=== PATIENT | female | born 1955 | race Caucasian/White ===

== ENCOUNTER 2018-06-18 08:22 | Outpatient (REF) | payer OTHER, SELFPAY ==
[2018-06-18 13:22] LABS: ALT 31 U/L (12-78); AST 24 U/L (15-37); Albumin 3.6 g/dL (3.4-5.0); Alkaline Phosphatase 65 U/L (46-116); Anion Gap 4.3 mmol/L (3-11); BUN 13 mg/dL (7-18); Bilirubin, Total 0.3 mg/dL (0.2-1.0); C-Reactive Protein 1.34 mg/dL (0.0-0.3); CO2 30.7 mmol/L (21.0-32.0); CREATININE 0.95 mg/dL (0.55-1.02); Calcium 8.9 mg/dL (8.5-10.1); Chloride 102 mmol/L (98-107); Glucose 98 mg/dL (70-100); Potassium 4.9 mmol/L (3.5-5.1); Sodium 137 mmol/L (136-145); Total Protein 6.8 g/dL (6.4-8.2)
[2018-06-18 13:31] LABS: Abs Immature Grans 0.02 k/cumm (0.0-0.09); Absolute Basophil Count 0.01 k/cumm (0.0-0.2); Absolute Eosinophil Count 0.07 k/cumm (0.0-0.7); Absolute Lymphocyte Count 1.59 k/cumm (1.2-3.4); Absolute Monocyte Count 0.54 k/cumm (0.11-0.7); Absolute Neutrophil Count 1.73 k/cumm (1.2-6.7); Basophils % 0.3; Eosinophils % 1.8; HCT 40.7 % (36.0-46.0); HGB 13.3 g/dL (12.0-15.5); Immature Grans % 0.5; Lymphocytes % 40.2; Mean Corp. HGB Concentration 32.7 g/dL (32.0-36.0); Mean Corpuscular Hemoglobin 30.9 pg (27.0-33.0); Mean Corpuscular Volume 94.7 fL (80-95); Mean Platelet Volume 10.1 fL (8.0-11.0); Monocytes % 13.6; Neutrophils % 43.6; Platelet Count 211 x1000/uL (130-400); RBC Distribution Width 12.2 % (11.7-14.6); White Blood Cell Count 3.96 k/cumm (4.4-10.8)
== END 2018-06-18 08:42 ==
LOC: LBN 08:22
PROVIDERS: Internal Medicine Rheumatology; PCP Internal Medicine; Visit Provider Internal Medicine
DX: Z79.899 Other long term (current) drug therapy (principal)
CPT/HCPCS: 80053; 85025; 86140

== ENCOUNTER 2018-09-20 00:38 | Outpatient (CLI) | payer OTHER, SELFPAY ==
--- NOTE | 2018-09-20 08:11 | DI.RAD_ITS ---
SYMPTOM/DIAGNOSIS: RHEUMATOID ARTHRITIS, M05.89, ASSESS FOR INTERVAL CHANGE RIGHT FOOT: Three views. Comparison is made with 09/14/16. The bones are normally mineralized. The metacarpal phalangeal joints are well maintained. There is mild periarticular spurring seen at the interphalangeal joint of the great toe and the DIP joint of the right third toe. The joint spaces are otherwise well maintained. There is a small spur at the plantar surface of the calcaneus which appears stable. No acute fracture, dislocation, lytic or sclerotic lesion is seen. The soft tissues are unremarkable. IMPRESSION: Findings most consistent with mild stable degenerative changes of the right foot. LEFT FOOT: Three views. Comparison is made with 09/14/16. There are again seen post surgical changes in the first metatarsal and ankylosis of the proximal interphalangeal joint of the second toe. The articular surfaces are well maintained, particularly the metatarsal phalangeal joints. The bones are normally mineralized. No acute fracture, dislocation, lytic or sclerotic lesion is seen. The soft tissues are unremarkable. IMPRESSION: No radiographic findings suggestive of rheumatoid arthritis. ARTHRITIC SERIES OF THE HANDS: Comparison is made with 09/14/16. In the left hand, the metacarpal phalangeal joints are all well maintained. Mild joint space narrowing and periarticular spurring is seen in the interphalangeal joints of the hand, particularly the DIP joints of the index, middle and little fingers. No periarticular osteopenia, lytic or sclerotic lesions or soft tissue calcifications are seen. IMPRESSION: Findings most suggestive of degenerative changes of the left hand. In the right hand, there is again seen narrowing of the second metacarpal phalangeal joint. The metacarpal phalangeal joints show no evidence of periarticular osteopenia. In the interphalangeal joints of the right hand, there is mild joint space narrowing and periarticular spurring most suggestive of degenerative disease. At the first carpal metacarpal joint, there is mild periarticular spurring and subchondral sclerosis also suggestive of degenerative changes. No soft tissue calcifications or osseous lytic or sclerotic lesions are seen. IMPRESSION: Findings most suggestive of degenerative disease of the right hand.
== END 2018-09-20 00:58 ==
PROVIDERS: PCP Internal Medicine; Visit Provider Internal Medicine Rheumatology
DX: M05.89 Other rheumatoid arthritis with rheumatoid factor of multiple sites (principal); M19.071 Primary osteoarthritis, right ankle and foot; M77.31 Calcaneal spur, right foot; M19.042 Primary osteoarthritis, left hand; Z98.890 Other specified postprocedural states
CPT/HCPCS: 73120; 73630

== ENCOUNTER 2018-10-08 08:33 | Outpatient (REF) | payer OTHER, SELFPAY ==
[2018-10-08 12:43] LABS: Abs Immature Grans 0.01 k/cumm (0.0-0.09); Absolute Basophil Count 0.01 k/cumm (0.0-0.2); Absolute Eosinophil Count 0.07 k/cumm (0.0-0.7); Absolute Lymphocyte Count 1.84 k/cumm (1.2-3.4); Absolute Monocyte Count 0.49 k/cumm (0.11-0.7); Absolute Neutrophil Count 2.37 k/cumm (1.2-6.7); Basophils % 0.2; Eosinophils % 1.5; HCT 40.4 % (36.0-46.0); Immature Grans % 0.2; Lymphocytes % 38.4; Mean Corp. HGB Concentration 32.2 g/dL (32.0-36.0); Mean Corpuscular Hemoglobin 30.5 pg (27.0-33.0); Mean Corpuscular Volume 94.8 fL (80-95); Monocytes % 10.2; Neutrophils % 49.5; Platelet Count 245 x1000/uL (130-400); RBC 4.26 m/cumm (4.00-5.20); RBC Distribution Width 12.5 % (11.7-14.6); White Blood Cell Count 4.79 k/cumm (4.4-10.8)
[2018-10-08 13:14] LABS: ALT 35 U/L (12-78); AST 21 U/L (15-37); Albumin 3.6 g/dL (3.4-5.0); Alkaline Phosphatase 69 U/L (46-116); Anion Gap 7.4 mmol/L (3-11); BUN 20 mg/dL (7-18); Bilirubin, Total 0.4 mg/dL (0.2-1.0); CO2 31.6 mmol/L (21.0-32.0); CREATININE 0.94 mg/dL (0.55-1.02); Chloride 103 mmol/L (98-107); Glucose 94 mg/dL (70-100); Potassium 4.4 mmol/L (3.5-5.1); Sodium 142 mmol/L (136-145); Total Protein 6.7 g/dL (6.4-8.2)
== END 2018-10-08 08:53 ==
LOC: LBN 08:33
PROVIDERS: Internal Medicine Rheumatology; PCP Internal Medicine; Visit Provider Internal Medicine
DX: Z79.899 Other long term (current) drug therapy (principal)
CPT/HCPCS: 80053; 85025; 86140

== ENCOUNTER 2019-02-12 09:11 | Outpatient (REF) | payer OTHER, SELFPAY ==
[2019-02-12 13:17] LABS: HCT 41.5 % (36.0-46.0); HGB 13.5 g/dL (12.0-15.5); Mean Corp. HGB Concentration 32.5 g/dL (32.0-36.0); Mean Corpuscular Hemoglobin 30.9 pg (27.0-33.0); Mean Platelet Volume 10.1 fL (8.0-11.0); Platelet Count 218 x1000/uL (130-400); RBC 4.37 m/cumm (4.00-5.20); RBC Distribution Width 12.6 % (11.7-14.6); White Blood Cell Count 4.43 k/cumm (4.4-10.8)
[2019-02-12 14:13] LABS: ALT 29 U/L (12-78); AST 23 U/L (15-37); Albumin 3.8 g/dL (3.4-5.0); Alkaline Phosphatase 65 U/L (46-116); BUN 19 mg/dL (7-18); Bilirubin, Total 0.2 mg/dL (0.2-1.0); C-Reactive Protein 0.16 mg/dL (0.0-0.3); CREATININE 0.84 mg/dL (0.55-1.02); Calcium 9.2 mg/dL (8.5-10.1); Chloride 105 mmol/L (98-107); Glucose 99 mg/dL (70-100); Potassium 4.7 mmol/L (3.5-5.1); Sodium 141 mmol/L (136-145); Total Protein 6.8 g/dL (6.4-8.2)
[2019-02-12 14:19] LABS: Calculated LDL 144 mg/dL; Cholesterol 223 mg/dL (50-200); HDL Cholesterol 63 mg/dL (40-60); Triglyceride 84 mg/dL (30-150)
== END 2019-02-12 09:31 ==
LOC: LBN 09:11
PROVIDERS: Internal Medicine Rheumatology; PCP Internal Medicine; Visit Provider Internal Medicine
DX: Z13.220 Encounter for screening for lipoid disorders (principal); M06.9 Rheumatoid arthritis, unspecified; Z79.899 Other long term (current) drug therapy
CPT/HCPCS: 80053; 80061; 83721; 85027; 86140

== ENCOUNTER 2019-05-27 19:02 | Outpatient (REF) | payer OTHER, SELFPAY ==
[2019-05-27 13:41] LABS: ALT 24 U/L (14-59); AST 20 U/L (15-37); Albumin 3.6 g/dL (3.4-5.0); Alkaline Phosphatase 68 U/L (46-116); Anion Gap 8.1 mmol/L (3-11); BUN 19 mg/dL (7-18); Bilirubin, Total 0.4 mg/dL (0.2-1.0); C-Reactive Protein 0.13 mg/dL (0.0-0.3); CO2 27.9 mmol/L (21.0-32.0); CREATININE 0.82 mg/dL (0.55-1.02); Calcium 8.9 mg/dL (8.5-10.1); Chloride 106 mmol/L (98-107); Glucose 98 mg/dL (70-100); Potassium 4.4 mmol/L (3.5-5.1); Sodium 142 mmol/L (136-145); Total Protein 6.5 g/dL (6.4-8.2)
[2019-05-27 13:51] LABS: Abs Immature Grans 0.01 k/cumm (0.0-0.09); Absolute Basophil Count 0.03 k/cumm (0.0-0.2); Absolute Eosinophil Count 0.11 k/cumm (0.0-0.7); Absolute Lymphocyte Count 1.48 k/cumm (1.2-3.4); Absolute Monocyte Count 0.49 k/cumm (0.11-0.7); Absolute Neutrophil Count 2.11 k/cumm (1.2-6.7); Basophils % 0.7; Eosinophils % 2.6; HCT 40.6 % (36.0-46.0); HGB 12.9 g/dL (12.0-15.5); Immature Grans % 0.2; Mean Corp. HGB Concentration 31.8 g/dL (32.0-36.0); Mean Corpuscular Hemoglobin 30.2 pg (27.0-33.0); Mean Corpuscular Volume 95.1 fL (80-95); Mean Platelet Volume 10.2 fL (8.0-11.0); Monocytes % 11.6; Neutrophils % 49.9; Platelet Count 239 x1000/uL (130-400); RBC 4.27 m/cumm (4.00-5.20); RBC Distribution Width 12.4 % (11.7-14.6); White Blood Cell Count 4.23 k/cumm (4.4-10.8)
== END 2019-05-27 19:22 ==
LOC: LBN 19:02
PROVIDERS: PCP Internal Medicine; Visit Provider Internal Medicine Rheumatology
DX: M06.9 Rheumatoid arthritis, unspecified (principal); Z79.899 Other long term (current) drug therapy
CPT/HCPCS: 80053; 85025; 86140

== ENCOUNTER 2019-08-18 18:33 | Outpatient (REF) | payer OTHER, SELFPAY ==
[2019-08-18 20:04] LABS: C-Reactive Protein 0.86 mg/dL (0.0-0.3)
[2019-08-18 20:18] LABS: Abs Immature Grans 0.01 k/cumm (0.0-0.09); Absolute Basophil Count 0.01 k/cumm (0.0-0.2); Absolute Eosinophil Count 0.12 k/cumm (0.0-0.7); Absolute Lymphocyte Count 1.93 k/cumm (1.2-3.4); Absolute Monocyte Count 0.69 k/cumm (0.11-0.7); Absolute Neutrophil Count 1.89 k/cumm (1.2-6.7); Basophils % 0.2; Eosinophils % 2.6; HCT 40.9 % (36.0-46.0); HGB 13.1 g/dL (12.0-15.5); Immature Grans % 0.2 %; Lymphocytes % 41.5; Mean Corpuscular Hemoglobin 30.6 pg (27.0-33.0); Mean Corpuscular Volume 95.6 fL (80-95); Mean Platelet Volume 9.9 fL (8.0-11.0); Monocytes % 14.8; Neutrophils % 40.7; Platelet Count 234 x1000/uL (130-400); RBC 4.28 m/cumm (4.00-5.20); RBC Distribution Width 13.3 % (11.7-14.6); White Blood Cell Count 4.65 k/cumm (4.4-10.8)
[2019-08-18 20:38] LABS: ALT 61 U/L (14-59); AST 26 U/L (15-37); Albumin 3.8 g/dL (3.4-5.0); Alkaline Phosphatase 83 U/L (46-116); Anion Gap 6.7 mmol/L (3-11); BUN 17 mg/dL (7-18); Bilirubin, Total 0.5 mg/dL (0.2-1.0); CO2 29.3 mmol/L (21.0-32.0); CREATININE 0.99 mg/dL (0.55-1.02); Chloride 101 mmol/L (98-107); Estimated GFR 57.02 (mL/min/1.73m2); Glucose 84 mg/dL (74-106); Potassium 4.5 mmol/L (3.5-5.1); Sodium 137 mmol/L (136-145)
== END 2019-08-18 18:53 ==
LOC: LBN 18:33
PROVIDERS: PCP Internal Medicine; Visit Provider Internal Medicine Rheumatology
DX: M06.9 Rheumatoid arthritis, unspecified (principal); Z79.899 Other long term (current) drug therapy
CPT/HCPCS: 80053; 85025; 86140

== ENCOUNTER 2019-12-26 07:19 | Outpatient (CLI) | payer OTHER, SELFPAY ==
--- NOTE | 2019-12-26 09:00 | DI.MAMMO_ITS ---
EXAM: MAMMO SCREENING CLINICAL HISTORY: screening TECHNIQUE: Mammograms were interpreted according to the usual protocol including computer analysis w [employer] CAD system, tomosynthesis and C-view imaging. COMPARISON: 2010 through 2014 FINDINGS: The breasts are composed of heterogeneously dense fibroglandular densities, Breast Density category C . No suspicious masses or suspicious microcalcifications are seen. No skin thickening or abnormal axillary lymph nodes are seen. There has been no significant change from prior exams. A biopsy marker clip is again noted in the upp er outer quadrant of the left breast. IMPRESSION: BI-RADS Category 1: Negative mammogram. Yearly screening mammography is recommended. Breast density category C, heterogeneously dense tissue which decreases the sensitivity of the mammog dhruv. The mammogram demonstrates the patient's breast tissue is dense. Dense breast tissue is very common a nd is not abnormal but dense breast tissue can make it harder to find cancer on a mammogram. Also, de nse breast tissue may increase breast cancer risk. This information about the result of the mammogram report was provided to the patient to raise their awareness. Use this report when you speak with the patient about their risks for breast cancer, which includes their family history. At that time, you may recommend additional screening tests (Ultrasound or MRI) as they might be useful based on their r isk. A negative radiographic report should not delay biopsy if a dominant or clinically suspicious mass is present. Up to ten percent of cancers are not identified on mammography. A negative report may reinforce clinical impression. Adenosis and dense breasts may obscure an underlying neoplasm. False positive reports average 6 to 10%.
== END 2019-12-26 07:39 ==
PROVIDERS: PCP Internal Medicine; Visit Provider Internal Medicine
CPT/HCPCS: 77063; 77067

== ENCOUNTER 2020-01-01 14:59 | Outpatient (REF) | payer OTHER, SELFPAY ==
[2020-01-01 18:32] LABS: Absolute Basophil Count 0.02 k/cumm (0.0-0.2); Absolute Eosinophil Count 0.11 k/cumm (0.0-0.7); Absolute Lymphocyte Count 1.99 k/cumm (1.2-3.4); Absolute Neutrophil Count 2.77 k/cumm (1.2-6.7); Basophils % 0.4; HCT 39.8 % (36.0-46.0); HGB 12.9 g/dL (12.0-15.5); Lymphocytes % 36.2; Mean Corp. HGB Concentration 32.4 g/dL (32.0-36.0); Mean Corpuscular Hemoglobin 31.1 pg (27.0-33.0); Mean Corpuscular Volume 95.9 fL (80-95); Monocytes % 10.9; Neutrophils % 50.5; Platelet Count 244 x1000/uL (130-400); RBC 4.15 m/cumm (4.00-5.20); RBC Distribution Width 12.3 % (11.7-14.6); White Blood Cell Count 5.49 k/cumm (4.4-10.8)
[2020-01-01 19:10] LABS: ALT 32 U/L (14-59); AST 25 U/L (15-37); Albumin 3.8 g/dL (3.4-5.0); Alkaline Phosphatase 77 U/L (46-116); Anion Gap 6.1 mmol/L (3-11); BUN 17 mg/dL (7-18); Bilirubin, Total 0.3 mg/dL (0.2-1.0); C-Reactive Protein 0.12 mg/dL (0.0-0.3); CO2 30.9 mmol/L (21.0-32.0); CREATININE 0.95 mg/dL (0.55-1.02); Calcium 9.3 mg/dL (8.5-10.1); Chloride 102 mmol/L (98-107); Estimated GFR 59.61 (mL/min/1.73m2); Glucose 101 mg/dL (74-106); Potassium 4.4 mmol/L (3.5-5.1); Sodium 139 mmol/L (136-145); Total Protein 6.9 g/dL (6.4-8.2)
== END 2020-01-01 15:19 ==
LOC: LBN 14:59
PROVIDERS: Internal Medicine Rheumatology; PCP Internal Medicine; Visit Provider Family Medicine
DX: M06.9 Rheumatoid arthritis, unspecified (principal); Z79.899 Other long term (current) drug therapy
CPT/HCPCS: 80053; 85025; 86140

== ENCOUNTER 2020-05-04 13:32 | Outpatient (REF) | payer OTHER, SELFPAY ==
[2020-05-04 18:35] LABS: Abs Immature Grans 0.01 10^3/uL (0.0-0.06); Absolute Basophil Count 0.04 10^3/uL (0.0-0.2); Absolute Eosinophil Count 0.11 10^3/uL (0.0-0.7); Absolute Lymphocyte Count 1.92 10^3/uL (1.2-3.4); Absolute Monocyte Count 0.52 10^3/uL (0.1-0.8); Absolute Neutrophil Count 3.04 10^3/uL (1.2-6.7); Basophils % 0.7; HCT 39.4 % (36.0-46.0); Immature Grans % 0.2; MCH 31.4 pg (27.0-33.0); MCV 95.2 fL (80-95); MPV 10.4 fL (8.0-11.0); Monocytes % 9.2; Neutrophils % 53.9; Nucleated RBC 0 %; Platelet Count 247 10^3/uL (130-400); RBC 4.14 10^6/uL (3.93-5.22); RDW 12.2 % (11.7-14.6); RDW-SD 42.6 fL; WBC 5.64 10^3/uL (4.4-10.8)
== END 2020-05-04 13:52 ==
LOC: LBN 13:32
PROVIDERS: PCP Internal Medicine; Visit Provider Internal Medicine
DX: M05.89 Other rheumatoid arthritis with rheumatoid factor of multiple sites (principal); Z79.899 Other long term (current) drug therapy
CPT/HCPCS: 85025; 86140

== ENCOUNTER 2020-05-07 04:28 | Outpatient (CLI) | payer OTHER, SELFPAY ==
[2020-05-09 10:09] LABS: Patient Race White; SARS-CoV-2 RNA Undetected (Undetected); SARS-CoV-2 Specimen Source Nasal
== END 2020-05-07 04:48 ==
PROVIDERS: PCP Internal Medicine; Visit Provider Nurse Practitioner Family
DX: Z11.59 Encounter for screening for other viral diseases (principal)
CPT/HCPCS: U0003

== ENCOUNTER 2020-08-13 09:06 | Outpatient (CLI) | payer OTHER, SELFPAY ==
--- NOTE | 2020-08-13 08:45 | DI.RAD_ITS ---
EXAM: XR FOOT RT COMPLETE CLINICAL HISTORY: sharmaine. TECHNIQUE: 2D digital imaging was performed. COMPARISON: CR XR foot RT complete from 09/20/2018 FINDINGS: BONES: No acute fracture is present. There is a cortical defect at the lateral aspect of the head of the right 5th metatarsal. This is associated with lucency in the head and overlying soft tissue swel ling. The joint space is well maintained. There is a small spur at the plantar surface of the calca neus JOINTS: No dislocation present. SOFT TISSUE: Normal. IMPRESSION: Interval development of a cortical break at the lateral aspect of the head of the right 5th metatarsa l with associated bony lucency and overlying soft tissue swelling. Osteomyelitis should be excluded in this patient. An MRI without and with contrast should be considered for further evaluation. DATA REPOSITORY: RADIATION DOSE DELIVERED:
== END 2020-08-13 09:26 ==
PROVIDERS: PCP Internal Medicine; Referring Provider Internal Medicine; Visit Provider Physician Assistant Surgical
DX: M06.871 Other specified rheumatoid arthritis, right ankle and foot (principal); M21.621 Bunionette of right foot; R93.7 Abnormal findings on diagnostic imaging of other parts of musculoskeletal system; M79.89 Other specified soft tissue disorders; S92.351A Displaced fracture of fifth metatarsal bone, right foot, initial encounter for closed fracture
CPT/HCPCS: 73630

== ENCOUNTER 2020-08-26 03:02 | Outpatient (CLI) | payer OTHER, SELFPAY ==
--- NOTE | 2020-08-26 06:45 | DI.MRI_ITS ---
EXAM: MR LOWER EXTREMITY RT WO CLINICAL HISTORY: 5TH MT BONE LESION,RHEUMATOID ARTHRITIS RT FOOT, M06.9. TECHNIQUE: Multiplanar multisequence MRI Examination was performed. COMPARISON: Comparison x-ray examination of the right foot from 08/13/2020. FINDINGS: There is loss of the cortex of the lateral and plantar surface of the head of the 5th metatarsal. Th ere is hyperintense signal seen in the distal half of the 5th metatarsal on the T2 weighted images an d corresponding hypointense signal on the T1 weighted images. There is fluid surrounding the head an d enlarging the MTP joint. It displaces the extensor and flexor tendons. There is there is mild hyp erintense signal seen in the proximal phalanx of the 5th toe. There is mild edema seen in the soft t issues around the 5th MTP joint. The surrounding musculature shows normal signal and size. There is nonspecific mild marrow edema seen in the proximal phalanx of the great toe with a small ryan nt effusion. No joint space narrowing identified. IMPRESSION: 1. Cortical disruption and marrow edema involving the 5th metatarsal. Please see the above discussio n for complete details. Diagnostic considerations include septic arthritis and osteomyelitis versus neoplasm. 2. Marrow edema and a joint effusion involving the interphalangeal joint of the great toe. An inflam matory/infectious process should be considered. DATA REPOSITORY:
== END 2020-08-26 03:22 ==
PROVIDERS: PCP Internal Medicine; Visit Provider Student in an Organized Health Care Education/Training Program
DX: M06.9 Rheumatoid arthritis, unspecified (principal); M89.8X8 Other specified disorders of bone, other site
CPT/HCPCS: 73718

== ENCOUNTER 2020-09-07 07:53 | Outpatient (REF) | payer OTHER, SELFPAY ==
[2020-09-07 13:47] LABS: Abs Immature Grans 0.01 10^3/uL (0.0-0.06); Absolute Basophil Count 0.04 10^3/uL (0.0-0.2); Absolute Eosinophil Count 0.13 10^3/uL (0.0-0.7); Absolute Lymphocyte Count 1.88 10^3/uL (1.2-3.4); Absolute Monocyte Count 0.46 10^3/uL (0.1-0.8); Absolute Neutrophil Count 2.53 10^3/uL (1.2-6.7); Basophils % 0.8; Eosinophils % 2.6; HCT 41.1 % (36.0-46.0); HGB 13.2 g/dL (11.2-15.7); Immature Grans % 0.2; Lymphocytes % 37.2; MCH 30.2 pg (27.0-33.0); MCHC 32.1 % (32.0-36.0); MCV 94.1 fL (80-95); Monocytes % 9.1; Neutrophils % 50.1; Nucleated RBC 0 %; Platelet Count 263 10^3/uL (130-400); RBC 4.37 10^6/uL (3.93-5.22); RDW 11.7 % (11.7-14.6); RDW-SD 40.7 fL; WBC 5.05 10^3/uL (4.4-10.8)
[2020-09-07 14:03] LABS: ALT 27 U/L (14-59); AST 19 U/L (15-37); Albumin 3.7 g/dL (3.4-5.0); Alkaline Phosphatase 73 U/L (46-116); Anion Gap 8.6 mmol/L (3-11); BUN 21 mg/dL (7-18); Bilirubin, Total 0.4 mg/dL (0.2-1.0); C-Reactive Protein 0.09 mg/dL (0.0-0.3); CO2 28.4 mmol/L (21.0-32.0); CREATININE 0.9 mg/dL (0.55-1.02); Calcium 9.5 mg/dL (8.5-10.1); Chloride 106 mmol/L (98-107); Glucose 92 mg/dL (74-106); Potassium 4.6 mmol/L (3.5-5.1); Sodium 143 mmol/L (136-145); Total Protein 6.9 g/dL (6.4-8.2)
== END 2020-09-07 07:54 | disposition home or self-care (01) ==
LOC: LBN 07:53
PROVIDERS: Internal Medicine Rheumatology; PCP Internal Medicine; Visit Provider Nurse Practitioner
DX: M05.89 Other rheumatoid arthritis with rheumatoid factor of multiple sites (principal); Z79.899 Other long term (current) drug therapy
CPT/HCPCS: 80053; 85025; 86140

== ENCOUNTER 2020-09-17 02:31 | Outpatient (CLI) | payer OTHER, SELFPAY ==
[2020-09-22 12:27] LABS: TB Interpretation Negative (Negative); TB1 Ag minus Nil 0.02 IU/ml; TB2 Ag minus Nil 0.01 IU/mL
== END 2020-09-17 02:32 | disposition home or self-care (01) ==
LOC: LBO 02:31
PROVIDERS: PCP Internal Medicine; Visit Provider Internal Medicine Rheumatology
DX: Z11.1 Encounter for screening for respiratory tuberculosis
CPT/HCPCS: 36415; 86480

== ENCOUNTER 2020-12-08 16:08 | Outpatient (REF) | payer OTHER, SELFPAY ==
[2020-12-08 19:10] LABS: Abs Immature Grans 0.01 10^3/uL (0.0-0.06); Absolute Basophil Count 0.04 10^3/uL (0.0-0.2); Absolute Eosinophil Count 0.22 10^3/uL (0.0-0.7); Absolute Monocyte Count 0.65 10^3/uL (0.1-0.8); Absolute Neutrophil Count 2.86 10^3/uL (1.2-6.7); Basophils % 0.6; Eosinophils % 3.2; HCT 41.9 % (36.0-46.0); HGB 13.7 g/dL (11.2-15.7); Immature Grans % 0.1; Lymphocytes % 45.1; MCH 30.7 pg (27.0-33.0); MCHC 32.7 % (32.0-36.0); MCV 93.9 fL (80-95); MPV 9.8 fL (8.0-11.0); Monocytes % 9.4; Neutrophils % 41.6; Nucleated RBC 0 %; Platelet Count 225 10^3/uL (130-400); RBC 4.46 10^6/uL (3.93-5.22); RDW 11.9 % (11.7-14.6); RDW-SD 41.9 fL; WBC 6.88 10^3/uL (4.4-10.8)
[2020-12-08 19:26] LABS: ALT 32 U/L (14-59); AST 22 U/L (15-37); Albumin 4.2 g/dL (3.4-5.0); Alkaline Phosphatase 63 U/L (46-116); Anion Gap 8.3 mmol/L (3-11); BUN 20 mg/dL (7-18); Bilirubin, Total 0.4 mg/dL (0.2-1.0); C-Reactive Protein 0.05 mg/dL (0.0-0.3); CO2 29.7 mmol/L (21.0-32.0); Calcium 9.5 mg/dL (8.5-10.1); Chloride 104 mmol/L (98-107); Glucose 90 mg/dL (74-106); Potassium 4.3 mmol/L (3.5-5.1); Sodium 142 mmol/L (136-145); Total Protein 7.2 g/dL (6.4-8.2)
== END 2020-12-08 16:09 | disposition home or self-care (01) ==
LOC: LBN 16:08
PROVIDERS: Internal Medicine Rheumatology; PCP Internal Medicine; Visit Provider Internal Medicine
DX: M05.89 Other rheumatoid arthritis with rheumatoid factor of multiple sites (principal); Z79.899 Other long term (current) drug therapy
CPT/HCPCS: 80053; 85025; 86140

== ENCOUNTER 2021-04-20 14:57 | Outpatient (REF) | payer OTHER, SELFPAY ==
[2021-04-20 16:38] LABS: Abs Immature Grans 0.01 10^3/uL (0.0-0.06); Absolute Basophil Count 0.04 10^3/uL (0.0-0.2); Absolute Eosinophil Count 0.12 10^3/uL (0.0-0.7); Absolute Lymphocyte Count 2.15 10^3/uL (1.2-3.4); Absolute Monocyte Count 0.99 10^3/uL (0.1-0.8); Absolute Neutrophil Count 4.97 10^3/uL (1.2-6.7); Basophils % 0.5; Eosinophils % 1.4; HCT 41.8 % (36.0-46.0); HGB 13.2 g/dL (11.2-15.7); Immature Grans % 0.1; MCH 30.7 pg (27.0-33.0); MCHC 31.6 % (32.0-36.0); MCV 97.2 fL (80-95); MPV 10.2 fL (8.0-11.0); Nucleated RBC 0 %; Platelet Count 250 10^3/uL (130-400); RDW 12.2 % (11.7-14.6); RDW-SD 43.8 fL; WBC 8.28 10^3/uL (4.4-10.8)
[2021-04-20 16:47] LABS: C-Reactive Protein 0.09 mg/dL (0.0-0.3)
== END 2021-04-20 14:58 | disposition home or self-care (01) ==
LOC: LBN 14:57
PROVIDERS: PCP Internal Medicine; Visit Provider Internal Medicine Rheumatology
DX: M05.89 Other rheumatoid arthritis with rheumatoid factor of multiple sites (principal); Z79.899 Other long term (current) drug therapy
CPT/HCPCS: 85025; 86140

== ENCOUNTER 2021-04-26 18:22 | Outpatient (REF) | payer OTHER, SELFPAY ==
[2021-04-26 17:32] LABS: ALT 27 U/L (14-59); AST 21 U/L (15-37); Albumin 3.5 g/dL (3.4-5.0); Alkaline Phosphatase 64 U/L (46-116); Anion Gap 8.4 mmol/L (3-11); BUN 20 mg/dL (7-18); Bilirubin, Total 0.3 mg/dL (0.2-1.0); CO2 28.6 mmol/L (21.0-32.0); CREATININE 0.8 mg/dL (0.55-1.02); Calcium 9.4 mg/dL (8.5-10.1); Chloride 106 mmol/L (98-107); Glucose 107 mg/dL (74-106); Potassium 4.6 mmol/L (3.5-5.1); Sodium 143 mmol/L (136-145); Total Protein 6.9 g/dL (6.4-8.2)
== END 2021-04-26 18:23 | disposition home or self-care (01) ==
LOC: LBN 18:22
PROVIDERS: PCP Internal Medicine; Visit Provider Internal Medicine Rheumatology
DX: M05.89 Other rheumatoid arthritis with rheumatoid factor of multiple sites (principal); Z79.899 Other long term (current) drug therapy
CPT/HCPCS: 80053

== ENCOUNTER 2021-05-16 15:45 | Emergency (ER) | payer OTHER, SELFPAY ==
[2021-05-16 15:51] VITALS: BP 162/70; PULSE 86; RESP 16; TEMP 36.6; O2SAT 99
--- NOTE | 2021-05-16 15:58 | ED.GENADUL_ITS ---
Discharge Plan Disposition Patient Disposition: HOME Condition: Good Discharge Details Clinical Impression: Laceration of lip, Contusion of lip Primary Care Provider: Rossana Phillips ED Provider: Ayde Bailey Home Meds and New Rx's Prescriptions: Continued albuterol sulfate [ProAir HFA] 90 mcg/actuation HFA aerosol inhaler 2 inh Inhalation Q4H PRN Qty: 36 RF: 2 triamcinolone acetonide 0.1 % cream 1 applic topical TID PRN (Reason: eczema) Qty: 80 RF: 2 meclizine 12.5 MG tablet 12.5 mg PO PRN RF: 0 calcium carbonate [Calcium 600] 600 MG tablet 1 tab PO BID RF: 0 ibuprofen 200 MG tablet 2 - 3 tab PO Q4H PRN RF: 0 cholecalciferol (vitamin D3) [Vitamin D3] 2,000 UNIT capsule 2,000 unit PO DAILY RF: 0 betamethasone, augmented 50 GM ointment 1 gm Topical PRN Qty: 45 RF: 3 leucovorin calcium 5 MG tablet 10 mg PO once a week RF: 0 Humira(CF) 40 mg/0.4 mL syringe kit 40 mg subcut Q2W RF: 0 hydroxychloroquine [Plaquenil] 200 mg tablet 200 mg PO DAILY RF: 0 Discharge Instructions Instructions: Laceration (ED) Additional Instructions: Your wound should heal well through secondary intention. Please complete warm salt water rinses after every meal and prior to bed. Please continue with ice to help with swelling. Elevating your head at night may help some with the swelling. Please continue with Tylenol and/or ibuprofen as needed for discomfort. Please try to stick with soft foods to allow this to heal as well as not put further pressure on your teeth. Monitor wound for signs infection including redness, warmth, drainage, increased pain, fever/chills. If you develop these or other new/worsening symptoms please seek care urgently once again. Please follow up with primary care in 1-2 weeks for reevaluaiton. Referrals: Rossana Phillips MD [Primary Care Provider] - Discharge Data Discharge Date/Time-TO BE ENTERED AT DEPARTURE: 05/16/21 16:15 Medical Decision Making Patient is a pleasant 65-year-old female presenting today with chief complaint of swollen upper lip and laceration on the internal aspect of the left upper lip. 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 States that she accidentally tripped over a cord in the room and fell forward hitting her face against a counter. States that overall she took the impact on her hands is able to brace herself. However, did strike her left and have some mouth trauma. Tetanus is up-to-date. States that she feels tight in her arms but is not having any pain in these areas. Does not feel that this needs to be evaluated further. She denies headache, loss of consciousness. She is concerned with the patient, she feels that her teeth are well aligned and they are not loose in any way. On exam, patient appears nontoxic. She does have notable swelling to the upper On the left aspect of her lip. She has a small subcentimeter linear laceration on the internal aspect of the upper lip. There is no through and through laceration. Appears to be through the outer most layer of the lip tissue. Ecchymosis is noted on the inner aspect of the lower lip. Maxillary stability testing is intact. No pain of the chin. No evidence to suggest fracture. Teeth are well aligned I do not appreciate any looseness. Tongue normal. No evidence of trauma elsewhere. Patient I discussed treatment options. Patient is immunocompromised that she has a history of RA and is on Humira. We discussed closure versus closure of the wound. Given the size, I feel that it would be safer to allow the heel naturally. This allows for her to be with a replacement therapy with salt water to remove any potential foreign body or debris that may become embedded in this area. Advised that she continue with ice. Tylenol and ibuprofen as needed for discomfort. We discussed foods that she should avoid, I did encourage her to soft foods as she did strike her teeth. Although I do not appreciate any significant damage or looseness at this time. She has plans to contact her dentist for further evaluation as her front teeth are crowns. We discussed signs symptoms of infection when to seek care for this. All the questions and concerns were addressed and she is in agreement with plan. HPI General Mode of arrival: ambulatory . Date/Time Provider Initiated Documentation: 05/16/21 15:58 . Limitations to Documentation: no limitations . Information obtained by: patient and RN notes reviewed . History of Present Illness 65 year old F presents to the emergency department with the chief complaint of lip swelling and laceration, described as moderate, with intensity rated at 5. Quality is described as aching, and is localized to the mouth. Patient reports no radiation. Patient started experiencing this minute(s) and it has been constant. other things that improve symptom(s), (ice) No exacerbating factors reported . Patient notes no other symptoms.. Patient did receive the following treatments prior to arrival, none Related Data Home Medications Medication Instructions Recorded Confirmed calcium carbonate [Calcium 600] 1 tab PO BID 11/15/12 05/16/21 cholecalciferol (vitamin D3) 2,000 unit PO DAILY 11/15/12 05/16/21 [Vitamin D3] ibuprofen 2 - 3 tab PO Q4H PRN tab-cap 11/15/12 05/16/21 meclizine 12.5 mg PO PRN tab 11/15/12 05/16/21 betamethasone, augmented 1 gm TOPICAL PRN #45 script 12/11/12 05/16/21 leucovorin calcium 10 mg PO once a week 03/13/17 05/16/21 albuterol sulfate 90 mcg/actuation 2 inh INHALATION Q4H PRN #36 gm 11/27/18 05/16/21 aerosol inhaler triamcinolone acetonide 0.1 % 1 applic TOPICAL TID PRN #80 g 06/22/20 05/16/21 topical cream adalimumab 40 mg/0.4 mL 40 mg SUBCUT Q2W 12/14/20 05/16/21 subcutaneous syringe kit hydroxychloroquine 200 mg tablet 200 mg PO DAILY 05/03/21 05/16/21 Previous Rx's Medication Instructions Recorded albuterol sulfate 90 mcg/actuation 2 inh INHALATION Q4H PRN #36 gm 11/27/18 aerosol inhaler triamcinolone acetonide 0.1 % 1 applic TOPICAL TID PRN #80 g 06/22/20 topical cream Allergies Allergy/AdvReac Type Severity Reaction Status Date / Time psyllium Allergy Severe wheezing, Verified 05/16/21 15:57 hives,itching,nausea/vomiting General Stated Complaint: Laceration [place]ENS: 4 Review of Systems Constitutional Constitutional: Reports as per HPI, Denies chills, Denies fever(s) and Denies headache(s) Eyes Eyes: Denies change in vision ENT Ears, Nose, Mouth, and Throat: Denies headache(s) and Denies neck pain Musculoskeletal Musculoskeletal: Reports as per HPI, Denies back pain and Denies neck pain Integumentary/Breasts Skin/Breast: Reports as per HPI Neurologic Neurologic: Reports as per HPI, Denies headache(s), Denies sensory deficit and Denies paresthesias [facility] Surgical History bunionectomy (~2009) [facility] Family History Mother Hypertensive disorder, systemic arterial Stroke Father Hearing loss Congestive heart failure Atrial fibrillation Asthma Sister Asthma Grandfather Diabetes paternal Grandfather Stroke Grandmother Congestive heart failure Grandmother Stroke Other Heart disease Social History (Updated 11/27/18 @ 14:30 by Edel Davalos RN) Smoking/Tobacco Use Status: Never Smoking risk assessment performed?: Yes Alcohol Intake: current Alcohol Intake frequency: holidays/special occasions only Alcohol type: wine Drug use: Never Substance use type: does not use Adopted: No Household members: spouse Housing: house Number of Children: 0 Communication Needs: Corrective Lenses Education Level: vocational current occupation: BOOKKEEPER What is your relationship status?: Panel score (0-1 are the most socially isolated patients): 1 What type of physical activity do you participate in: walking and regular exercise Duration: 15-30 minutes/day Frequency: 3-4 times per week Seatbelt use: always Drive intox or ride 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 Working smoke detector in home: Yes Fire extinguisher in home: Yes Carbon monox detector in home: Yes Do you feel safe at home: Yes Do you feel safe in your relationship?: Yes Victim of emotional abuse: No Victim of sexual abuse: No Exam Const General: cooperative, healthy appearing, comfortable, no acute distress and well developed Nutritional Appearance: average body habitus and well nourished Orientation: alert and awake [facility] Head: normal to inspection, normocephalic and atraumatic General nose exam: external nose normal and nares normal Face and sinus: normal facial exam, sinuses nontender, no maxillary instability, no sinus tenderness and no tenderness Mouth: oral mucosae normal, lip abnormal (swelling and ecchymosis to upper left side of lip), moist mucous membranes, no drooling, mouth trauma (<1cm linear laceration upper inner lip, no bleeding), no muffled voice, No restricted motion and other (ecchymosis inner lower lip) Teeth and gingiva: dentition normal Throat: posterior oropharynx normal, tonsils normal and uvula midline Eyes General: appearance normal, both eyes and all related structures Neck Neck: normal visual inspection and full ROM Resp Effort & Inspection: normal respiratory effort, able to speak in complete sentences and no respiratory distress Cardio Rate: regular rate Rhythm: regular rhythm Back/Spine/Pelvis Cervical Spine: normal cervical lordosis, cervical ROM normal, No cervical spinal tenderness and No step off deformity Neuro General: patient alert and patient awake Cognition: normal cognition Speech: speech normal Gait: normal gait Sensory Exam: no sensory deficits noted Psych Appearance: grossly normal and well kempt Mental Status: mental status grossly normal Speech and Movement: speech and movement normal Course Vital Signs Vital signs: Vital Signs Temperature 36.6 C 05/16/21 15:51 Pulse 86 05/16/21 15:51 Respiratory Rate 16 05/16/21 15:51 Blood Pressure 162/70 H 05/16/21 15:51 Pulse Oximetry 99 05/16/21 15:51 Temperature 36.6 C 05/16/21 15:51 Temperature Source Skin 05/16/21 15:51 Pulse 86 05/16/21 15:51 Respiratory Rate 16 05/16/21 15:51 Respiratory Effort Non-Labored 05/16/21 15:51 Blood Pressure 162/70 H 05/16/21 15:51 Pulse Oximetry 99 05/16/21 15:51 Oxygen Delivery Method Room Air 05/16/21 15:51 Oxygen Flow Rate 0 05/16/21 15:51 Pain Level 5 05/16/21 15:51 PAWSS Have you Been Recently Intoxicated or Drunk Within the Last 30 days?: No Have you Ever Experienced Previous Episodes of Alcohol Withdrawal?: No Have you ever Experienced Withdrawal Seizures?: No Have you ever Experienced Delirium Tremens(DT)s?: No Have you ever undergone Alcohol Rehabilitation Treatment (i.e, inpt ot outpatient treatment programs)?: No Have you ever Experienced Blackouts?: No Have you ever Combined Alcohol with other Downers within the last 90 days?: No Have you ever Combined Alcohol with any other Substance of Abuse during the last 90 days?: No Positive Blood Alcohol level on Presentation? [PCS.BAL]: No Evidence of Increased Autonomic Activity (i.e. HR>120, tremor, sweating, agitation, nausea)?: No Result: 0
== END 2021-05-16 16:15 | disposition home or self-care (01) ==
PROVIDERS: Emergency Provider Physician Assistant; PCP Internal Medicine
DX: S01.511A Laceration without foreign body of lip, initial encounter (principal); W01.198A Fall on same level from slipping, tripping and stumbling with subsequent striking against other object, initial encounter; Y99.0 Civilian activity done for income or pay
CPT/HCPCS: 99282; 99283

== ENCOUNTER 2021-07-19 07:51 | Outpatient (REF) | payer OTHER, SELFPAY ==
[2021-07-19 14:55] LABS: Abs Immature Grans 0.01 10^3/uL (0.0-0.06); Absolute Basophil Count 0.04 10^3/uL (0.0-0.2); Absolute Eosinophil Count 0.12 10^3/uL (0.0-0.7); Absolute Lymphocyte Count 2.58 10^3/uL (1.2-3.4); Absolute Neutrophil Count 2.07 10^3/uL (1.2-6.7); Basophils % 0.7; Eosinophils % 2.2; HCT 41.7 % (36.0-46.0); HGB 13.1 g/dL (11.2-15.7); Immature Grans % 0.2; Lymphocytes % 47.6; MCH 30.4 pg (27.0-33.0); MCHC 31.4 % (32.0-36.0); MCV 96.8 fL (80-95); MPV 9.9 fL (8.0-11.0); Monocytes % 11.1; Neutrophils % 38.2; Nucleated RBC 0 %; Platelet Count 249 10^3/uL (130-400); RBC 4.31 10^6/uL (3.93-5.22); RDW 11.9 % (11.7-14.6); RDW-SD 42.5 fL; WBC 5.42 10^3/uL (4.4-10.8)
[2021-07-19 16:40] LABS: ALT 40 U/L (14-59); AST 22 U/L (15-37); Albumin 3.8 g/dL (3.4-5.0); Alkaline Phosphatase 63 U/L (46-116); Anion Gap 5.4 mmol/L (3-11); BUN 25 mg/dL (7-18); Bilirubin, Total 0.3 mg/dL (0.2-1.0); C-Reactive Protein 0.05 mg/dL (0.0-0.3); CO2 30.6 mmol/L (21.0-32.0); CREATININE 0.9 mg/dL (0.55-1.02); Calcium 9.1 mg/dL (8.5-10.1); Chloride 107 mmol/L (98-107); Glucose 95 mg/dL (74-106); Sodium 143 mmol/L (136-145); Total Protein 6.8 g/dL (6.4-8.2)
== END 2021-07-19 07:52 | disposition home or self-care (01) ==
LOC: LBN 07:51
PROVIDERS: Internal Medicine Rheumatology; PCP Internal Medicine; Visit Provider Internal Medicine
DX: M05.89 Other rheumatoid arthritis with rheumatoid factor of multiple sites (principal); Z79.899 Other long term (current) drug therapy
CPT/HCPCS: 80053; 85025; 86140

== ENCOUNTER 2021-11-30 15:59 | Outpatient (REF) | payer OTHER, SELFPAY ==
[2021-11-30 16:51] LABS: Abs Immature Grans 0.01 10^3/uL (0.0-0.06); Absolute Basophil Count 0.05 10^3/uL (0.0-0.2); Absolute Eosinophil Count 0.07 10^3/uL (0.0-0.7); Absolute Lymphocyte Count 2.21 10^3/uL (1.2-3.4); Absolute Monocyte Count 0.48 10^3/uL (0.1-0.8); Absolute Neutrophil Count 2.13 10^3/uL (1.2-6.7); Eosinophils % 1.4; HCT 39.7 % (36.0-46.0); HGB 12.6 g/dL (11.2-15.7); Immature Grans % 0.2; Lymphocytes % 44.6; MCH 30.7 pg (27.0-33.0); MCHC 31.7 % (32.0-36.0); MCV 96.8 fL (80-95); Monocytes % 9.7; Neutrophils % 43.1; Platelet Count 226 10^3/uL (130-400); RDW 11.9 % (11.7-14.6); RDW-SD 42.7 fL; WBC 4.95 10^3/uL (4.4-10.8)
[2021-11-30 17:12] LABS: ALT 28 U/L (14-59); AST 19 U/L (15-37); Albumin 3.7 g/dL (3.4-5.0); Alkaline Phosphatase 63 U/L (46-116); Anion Gap 6.1 mmol/L (3-11); BUN 19 mg/dL (7-18); Bilirubin, Total 0.4 mg/dL (0.2-1.0); C-Reactive Protein 0.05 mg/dL (0.0-0.3); CO2 28.9 mmol/L (21.0-32.0); Calcium 8.7 mg/dL (8.5-10.1); Chloride 102 mmol/L (98-107); Estimated GFR 55.82 (mL/min/1.73m2); Glucose 88 mg/dL (74-106); Potassium 4.3 mmol/L (3.5-5.1); Sodium 137 mmol/L (136-145); Total Protein 6.8 g/dL (6.4-8.2)
== END 2021-11-30 16:00 | disposition home or self-care (01) ==
LOC: LBN 15:59
PROVIDERS: Internal Medicine Rheumatology; PCP Nurse Practitioner; Visit Provider Internal Medicine
DX: M05.89 Other rheumatoid arthritis with rheumatoid factor of multiple sites (principal); Z79.899 Other long term (current) drug therapy
CPT/HCPCS: 80053; 85025; 86140

== ENCOUNTER → 2021-12-28 03:39 | Outpatient (CLI) | payer OTHER, SELFPAY ==
--- NOTE | 2021-12-28 08:15 | DI.MAMMO_ITS ---
Exam(s) MAMMO SCREENING EXAM: MAMMO SCREENING CLINICAL HISTORY: screening, Z12.39 TECHNIQUE: Bilateral full field digital CC and MLO mammographic images were obtained with 3D tomosyn thesis and utilizing computer aided detection (CAD). COMPARISON: Available for comparison. FINDINGS: Masses/Architectural Distortion: None seen. Microcalcifications: No suspicious pleomorphic-type are seen. Skin Thickening/Nipple Retraction: None. A biopsy clip is again seen in the upper outer quadrant of t he left breast. IMPRESSION: 1. No significant interval change with no specific features of malignancy noted. 2. Unless there is more urgent need, screening mammography is recommended, as per [employer] guidelines. BI-RADS Category 1 - Negative Breast Density - Category C - Heterogeneously dense Breast density category C or D implies that the patient has dense breast tissue. Dense breast tissue is very common and is not abnormal but dense breast tissue can make it harder to find cancer on a ma mmogram. Also, dense breast tissue may increase their breast cancer risk. This information about the result of the mammogram report was provided to the patient to raise their awareness. Use this report when you speak with the patient about their risks for breast cancer, which includes their family hist ory. At that time, you may recommend for more screening tests (Ultrasound or MRI) as they might be us eful based on their risk. A negative radiographic report should not delay biopsy if a dominant or clinically suspicious mass is present. Up to ten percent of cancers are not identified on mammography. A negative report may reinforce clinical impression. Adenosis and dense breasts may obscure an underlying neoplasm. False positive reports average 6 to 10%. Patient will receive a letter notifying them of these results.
== END ==
PROVIDERS: PCP Nurse Practitioner; Visit Provider Nurse Practitioner
DX: Z12.31 Encounter for screening mammogram for malignant neoplasm of breast (principal)
CPT/HCPCS: 77063; 77067

== ENCOUNTER 2022-01-30 11:40 | Outpatient (CLI) | payer OTHER, SELFPAY ==
--- NOTE | 2022-01-30 08:15 | DI.RAD_ITS ---
Exam(s) XR KNEE RT 3V AP,LAT,JOSE EXAM: XR KNEE RT 3V AP,LAT,JOSE CLINICAL HISTORY: RIGHT KNEE PAIN. TECHNIQUE: 2D digital imaging was performed. COMPARISON: No exams were available for comparison FINDINGS: 3 views No evidence of fracture. There appears to be a small joint effusion. Addition, there are moderate degenerative changes in the medial compartment. There is also an osteoc hondral defect at the articular surface of the medial femoral condyle, measuring approximately 11 mil limeters wide. There are marginal osteophytes off the medial compartment. Lateral compartment appea rs unremarkable. Mild degenerative changes in the patellofemoral compartment. IMPRESSION: Degenerative changes, most evident in the medial compartment and there also appears to be an 11 jeovanny meter wide osteochondral defect in the medial compartment at the level of the condylar articular surf zack. There does not appear to be an obvious loose intra-articular body. There is a calcific density seen on the lateral view projected posteriorly but this may represent a fabella (as opposed to a loo se fragment from the OCD in the medial femoral condyle.) DATA REPOSITORY: RADIATION DOSE DELIVERED:
--- NOTE | 2022-01-30 08:15 | DI.RAD_ITS ---
Exam(s) XR KNEE LT 3V AP,LAT,JOSE EXAM: XR KNEE LT 3V AP,LAT,JOSE CLINICAL HISTORY: LEFT KNEE PAIN. TECHNIQUE: 2D digital imaging was performed. COMPARISON: CR XR KNEE RT 3V AP,LAT,JOSE from 01/30/2022 FINDINGS: 3 views No evidence of fracture nor obvious joint effusion. The main finding here is moderate narrowing of t he medial compartment as well as marginal osteophytes off the medial compartment. Lateral compartmen t appears unremarkable. Patellofemoral compartment exhibits moderate degenerative change. Bone dens ity normal. No osseous lesions evident. IMPRESSION: Moderate degenerative changes in the medial and patellofemoral compartments. DATA REPOSITORY: RADIATION DOSE DELIVERED:
== END 2022-01-30 11:41 | disposition home or self-care (01) ==
LOC: DIORS 11:41
PROVIDERS: PCP Nurse Practitioner; Referring Provider Nurse Practitioner; Visit Provider Physician Assistant
DX: M17.0 Bilateral primary osteoarthritis of knee (principal); M89.8X6 Other specified disorders of bone, lower leg
CPT/HCPCS: 73562

== ENCOUNTER 2022-04-13 07:35 | Outpatient (REF) | payer OTHER, SELFPAY ==
[2022-04-13 15:27] LABS: Abs Immature Grans 0.01 10^3/uL (0.0-0.06); Absolute Basophil Count 0.05 10^3/uL (0.0-0.2); Absolute Eosinophil Count 0.12 10^3/uL (0.0-0.7); Absolute Lymphocyte Count 2.16 10^3/uL (1.2-3.4); Absolute Monocyte Count 0.72 10^3/uL (0.1-0.8); Absolute Neutrophil Count 2.27 10^3/uL (1.2-6.7); Basophils % 0.9; Eosinophils % 2.3; HCT 41.2 % (36.0-46.0); HGB 13.6 g/dL (11.2-15.7); Immature Grans % 0.2; Lymphocytes % 40.5; MCH 30.8 pg (27.0-33.0); MCV 93 fL (80-95); MPV 10.1 fL (8.0-11.0); Monocytes % 13.5; Neutrophils % 42.6; Platelet Count 205 10^3/uL (130-400); RBC 4.41 10^6/uL (3.93-5.22); RDW 11.9 % (11.7-14.6); RDW-SD 41.2 fL; WBC 5.33 10^3/uL (4.4-10.8)
[2022-04-13 15:30] LABS: ALT 29 U/L (14-59); AST 25 U/L (15-37); Albumin 3.9 g/dL (3.4-5.0); Alkaline Phosphatase 60 U/L (46-116); Anion Gap 7.4 mmol/L (3-11); BUN 17 mg/dL (7-18); Bilirubin, Total 0.4 mg/dL (0.2-1.0); C-Reactive Protein 0.06 mg/dL (0.0-0.3); CO2 27.6 mmol/L (21.0-32.0); CREATININE 0.8 mg/dL (0.55-1.02); Calcium 8.9 mg/dL (8.5-10.1); Chloride 104 mmol/L (98-107); Estimated GFR 82.23 (mL/min/1.73m2); Glucose 99 mg/dL (74-106); Potassium 4.5 mmol/L (3.5-5.1); Sodium 139 mmol/L (136-145); Total Protein 7.3 g/dL (6.4-8.2)
== END 2022-04-13 07:36 | disposition home or self-care (01) ==
LOC: LBN 07:35
PROVIDERS: Internal Medicine Rheumatology; PCP Nurse Practitioner; Visit Provider Nurse Practitioner
DX: M05.89 Other rheumatoid arthritis with rheumatoid factor of multiple sites (principal); Z79.899 Other long term (current) drug therapy
CPT/HCPCS: 80053; 85025; 86140

== ENCOUNTER 2022-08-08 08:26 | Outpatient (REF) | payer OTHER, SELFPAY ==
[2022-08-08 18:20] LABS: Abs Immature Grans 0.02 10^3/uL (0.0-0.06); Absolute Basophil Count 0.05 10^3/uL (0.0-0.2); Absolute Eosinophil Count 0.13 10^3/uL (0.0-0.7); Absolute Neutrophil Count 2.85 10^3/uL (1.2-6.7); Basophils % 0.7; Eosinophils % 1.9; HCT 42.4 % (36.0-46.0); HGB 13.6 g/dL (11.2-15.7); Immature Grans % 0.3; MCH 30.6 pg (27.0-33.0); MCHC 32.1 % (32.0-36.0); MCV 96 fL (80-95); MPV 9.3 fL (8.0-11.0); Monocytes % 10.1; Platelet Count 311 10^3/uL (130-400); RBC 4.44 10^6/uL (3.93-5.22); RDW 12.3 % (11.7-14.6); WBC 6.95 10^3/uL (4.4-10.8)
[2022-08-08 18:46] LABS: ALT 31 U/L (14-59); AST 23 U/L (15-37); Albumin 3.9 g/dL (3.4-5.0); Alkaline Phosphatase 69 U/L (46-116); Anion Gap 6.6 mmol/L (3-11); BUN 18 mg/dL (7-18); Bilirubin, Total 0.3 mg/dL (0.2-1.0); CO2 27.4 mmol/L (21.0-32.0); Calcium 9.2 mg/dL (8.5-10.1); Chloride 104 mmol/L (98-107); Estimated GFR 62.91 (mL/min/1.73m2); Glucose 106 mg/dL (74-106); Potassium 4.3 mmol/L (3.5-5.1); Sodium 138 mmol/L (136-145); Total Protein 7.3 g/dL (6.4-8.2)
[2022-08-08 18:47] LABS: C-Reactive Protein < 0.05 mg/dL (0.0-0.3)
== END 2022-08-08 08:27 | disposition home or self-care (01) ==
LOC: LBN 08:26
PROVIDERS: PCP Nurse Practitioner; Referring Provider Internal Medicine Rheumatology; Visit Provider Internal Medicine Rheumatology
DX: M05.89 Other rheumatoid arthritis with rheumatoid factor of multiple sites (principal); Z79.899 Other long term (current) drug therapy
CPT/HCPCS: 80053; 85025; 86140

== ENCOUNTER 2022-10-31 07:44 | Outpatient (REF) | payer OTHER, SELFPAY ==
[2022-10-31 16:03] LABS: Abs Immature Grans 0.01 10^3/uL (0.0-0.06); Absolute Basophil Count 0.05 10^3/uL (0.0-0.2); Absolute Eosinophil Count 0.16 10^3/uL (0.0-0.7); Absolute Lymphocyte Count 2.49 10^3/uL (1.2-3.4); Absolute Monocyte Count 0.67 10^3/uL (0.1-0.8); Absolute Neutrophil Count 2.91 10^3/uL (1.2-6.7); Basophils % 0.8; Eosinophils % 2.5; HGB 13.8 g/dL (11.2-15.7); Immature Grans % 0.2; Lymphocytes % 39.6; MCH 30.6 pg (27.0-33.0); MCHC 32.9 % (32.0-36.0); MCV 93 fL (80-95); Monocytes % 10.7; Neutrophils % 46.2; Platelet Count 256 10^3/uL (130-400); RBC 4.51 10^6/uL (3.93-5.22); RDW 11.8 % (11.7-14.6); RDW-SD 40.4 fL; WBC 6.29 10^3/uL (4.4-10.8)
[2022-10-31 17:50] LABS: ALT 28 U/L (14-59); AST 18 U/L (15-37); Alkaline Phosphatase 59 U/L (46-116); Anion Gap 8.3 mmol/L (3-11); BUN 20 mg/dL (7-18); Bilirubin, Total 0.3 mg/dL (0.2-1.0); C-Reactive Protein 0.09 mg/dL (0.0-0.3); CO2 26.7 mmol/L (21.0-32.0); Calcium 9.7 mg/dL (8.5-10.1); Chloride 107 mmol/L (98-107); Estimated GFR 62.52 (mL/min/1.73m2); Glucose 109 mg/dL (74-106); Potassium 4.8 mmol/L (3.5-5.1); Sodium 142 mmol/L (136-145); Total Protein 7.5 g/dL (6.4-8.2)
== END 2022-10-31 07:45 | disposition home or self-care (01) ==
LOC: LBN 07:44
PROVIDERS: Internal Medicine Rheumatology; PCP Nurse Practitioner; Visit Provider Nurse Practitioner
DX: M05.89 Other rheumatoid arthritis with rheumatoid factor of multiple sites (principal); Z79.899 Other long term (current) drug therapy
CPT/HCPCS: 80053; 85025; 86140

== ENCOUNTER 2023-05-07 15:34 | Outpatient (REF) | payer OTHER, SELFPAY ==
[2023-05-07 17:39] LABS: Absolute Basophil Count 0.05 10^3/uL (0.0-0.2); Absolute Eosinophil Count 0.21 10^3/uL (0.0-0.7); Absolute Lymphocyte Count 2.62 10^3/uL (1.2-3.4); Absolute Monocyte Count 0.59 10^3/uL (0.1-0.8); Absolute Neutrophil Count 2.06 10^3/uL (1.2-6.7); Basophils % 0.9; Eosinophils % 3.8; HCT 42.1 % (36.0-46.0); HGB 13.5 g/dL (11.2-15.7); Lymphocytes % 47.4; MCH 30.2 pg (27.0-33.0); MCHC 32.1 % (32.0-36.0); MCV 94 fL (80-95); MPV 10.2 fL (8.0-11.0); Monocytes % 10.7; Neutrophils % 37.2; Platelet Count 272 10^3/uL (130-400); RBC 4.47 10^6/uL (3.93-5.22); RDW 11.9 % (11.7-14.6); RDW-SD 41.6 fL; WBC 5.53 10^3/uL (4.4-10.8)
[2023-05-07 17:57] LABS: ALT 33 U/L (14-59); AST 26 U/L (15-37); Albumin 3.8 g/dL (3.4-5.0); Alkaline Phosphatase 66 U/L (46-116); Anion Gap 9.4 mmol/L (3-11); BUN 17 mg/dL (7-18); Bilirubin, Total 0.3 mg/dL (0.2-1.0); C-Reactive Protein 0.17 mg/dL (0.0-0.3); CO2 25.6 mmol/L (21.0-32.0); CREATININE 0.9 mg/dL (0.55-1.02); Calcium 9.6 mg/dL (8.5-10.1); Chloride 105 mmol/L (98-107); Estimated GFR 70.95 (mL/min/1.73m2); Glucose 101 mg/dL (74-106); Potassium 4.5 mmol/L (3.5-5.1); Sodium 140 mmol/L (136-145); Total Protein 6.9 g/dL (6.4-8.2)
== END 2023-05-07 15:35 | disposition home or self-care (01) ==
LOC: LBN 15:34
PROVIDERS: PCP Nurse Practitioner; Visit Provider Internal Medicine Rheumatology
DX: M05.89 Other rheumatoid arthritis with rheumatoid factor of multiple sites (principal); Z79.899 Other long term (current) drug therapy
CPT/HCPCS: 80053; 85025; 86140

== ENCOUNTER → 2023-05-14 02:54 | Outpatient (CLI) | payer OTHER, SELFPAY ==
--- NOTE | 2023-05-14 08:30 | DI.MAMMO_ITS ---
Exam(s) MAMMO SCREENING EXAM: MAMMO SCREENING CLINICAL HISTORY: screening Z12.39 FOR BREATS CANCER TECHNIQUE: Mammograms were interpreted according to the usual protocol including computer analysis w [employer] CAD system, tomosynthesis and C-view imaging. COMPARISON: 2014 through 2021 FINDINGS: The breasts are composed of heterogeneously dense fibroglandular densities, Breast Density category C . No suspicious masses or suspicious microcalcifications are seen. No skin thickening or abnormal axillary lymph nodes are seen. There has been no significant change from prior exams. IMPRESSION: BI-RADS Category 1, Negative mammogram. Yearly screening mammography is recommended. Breast Density Category C, heterogeneously Dense. The mammogram demonstrates the patient's breast tissue is dense. Dense breast tissue is very common a nd is not abnormal but dense breast tissue can make it harder to find cancer on a mammogram. Also, de nse breast tissue may increase breast cancer risk. This information about the result of the mammogram report was provided to the patient to raise their awareness. Use this report when you speak with the patient about their risks for breast cancer, which includes their family history. At that time, you may recommend additional screening tests (Ultrasound or MRI) as they might be useful based on their r isk. A negative radiographic report should not delay biopsy if a dominant or clinically suspicious mass is present. Up to ten percent of cancers are not identified on mammography. A negative report may reinforce clinical impression. Adenosis and dense breasts may obscure an underlying neoplasm. False positive reports average 6 to 10%.
--- NOTE | 2023-05-14 08:30 | DI.DEXA_ITS ---
Exam(s) XR DEXA BONE DENSITY W/WO DAVIN EXAM: XR DEXA BONE DENSITY W/WO DAVIN CLINICAL HISTORY: screen osteoporosis Z78.0 MENOPAUSAL TECHNIQUE: [employer] C densitometer analysis of left hip, lumbar spine and left forearm. Lat eral survey image of the thoracic and lumbar spine. COMPARISON: No exams were available for comparison FINDINGS: Lateral view of the thoracic and lumbar spine shows no evidence of compression fractures. Bone mineral density measurements of the lumbar spine correspond to a total T-score of -2.0, in the osteopenic range. Bone mineral density measurements of the left hip correspond to a total T-score of -2.3. The femora l neck T-score is 3.0, in the osteoporotic range.. Theright forearm bone mineral density measurements correspond to a T-score of the distal 3rd of nega tive 2.2, in the osteopenic range. IMPRESSION: Osteoporosis of the femoral neck. Osteopenia of the lumbar spine and forearm.
== END ==
PROVIDERS: PCP Nurse Practitioner; Visit Provider Nurse Practitioner
DX: Z78.0 Asymptomatic menopausal state (principal); Z12.31 Encounter for screening mammogram for malignant neoplasm of breast; Z13.820 Encounter for screening for osteoporosis
CPT/HCPCS: 77063; 77067; 77080

== ENCOUNTER 2023-05-23 15:12 | Outpatient (REF) | payer OTHER, SELFPAY ==
[2023-05-23 16:49] LABS: Vitamin D 25 Total 36.5 ng/mL (30-100)
== END 2023-05-23 15:13 | disposition home or self-care (01) ==
LOC: LBN 15:12
PROVIDERS: PCP Nurse Practitioner; Visit Provider Nurse Practitioner
DX: M81.0 Age-related osteoporosis without current pathological fracture (principal)
CPT/HCPCS: 82306

== ENCOUNTER 2023-10-02 21:52 | Outpatient (REF) | payer OTHER, SELFPAY ==
[2023-10-02 17:38] LABS: Abs Immature Grans 0.01 10^3/uL (0.0-0.06); Absolute Basophil Count 0.02 10^3/uL (0.0-0.2); Absolute Eosinophil Count 0.12 10^3/uL (0.0-0.7); Absolute Lymphocyte Count 1.89 10^3/uL (1.2-3.4); Absolute Neutrophil Count 2.14 10^3/uL (1.2-6.7); Basophils % 0.4; Eosinophils % 2.5; HCT 39.1 % (36.0-46.0); HGB 12.5 g/dL (11.2-15.7); Immature Grans % 0.2; Lymphocytes % 39.5; MCH 30.1 pg (27.0-33.0); MCV 94 fL (80-95); MPV 10.2 fL (8.0-11.0); Monocytes % 12.6; Neutrophils % 44.8; Platelet Count 258 10^3/uL (130-400); RBC 4.15 10^6/uL (3.93-5.22); RDW 11.9 % (11.7-14.6); RDW-SD 41.4 fL; WBC 4.78 10^3/uL (4.4-10.8)
[2023-10-02 17:59] LABS: ALT 32 U/L (14-59); AST 20 U/L (15-37); Albumin 3.6 g/dL (3.4-5.0); Alkaline Phosphatase 51 U/L (46-116); Anion Gap 8.4 mmol/L (3-11); BUN 14 mg/dL (7-18); Bilirubin, Total 0.3 mg/dL (0.2-1.0); C-Reactive Protein < 0.50 mg/dL (<or=0.5); CO2 27.6 mmol/L (21.0-32.0); CREATININE 0.9 mg/dL (0.55-1.02); Chloride 107 mmol/L (98-107); Estimated GFR 70.51 (mL/min/1.73m2); Glucose 96 mg/dL (74-106); Potassium 4.5 mmol/L (3.5-5.1); Sodium 143 mmol/L (136-145); Total Protein 6.5 g/dL (6.4-8.2)
== END 2023-10-02 21:53 | disposition home or self-care (01) ==
LOC: LBN 21:52
PROVIDERS: PCP Nurse Practitioner; Visit Provider Internal Medicine Rheumatology
DX: M05.89 Other rheumatoid arthritis with rheumatoid factor of multiple sites (principal); Z79.899 Other long term (current) drug therapy
CPT/HCPCS: 80053; 85025; 86140

== ENCOUNTER 2024-01-29 19:46 | Outpatient (REF) | payer OTHER, SELFPAY ==
[2024-01-29 19:39] LABS: Absolute Basophil Count 0.04 10^3/uL (0.0-0.2); Absolute Eosinophil Count 0.16 10^3/uL (0.0-0.7); Absolute Lymphocyte Count 2.98 10^3/uL (1.2-3.4); Absolute Monocyte Count 0.68 10^3/uL (0.1-0.8); Absolute Neutrophil Count 2.61 10^3/uL (1.2-6.7); Basophils % 0.6 %; Eosinophils % 2.5 %; HCT 39.9 % (36.0-46.0); HGB 12.8 g/dL (11.2-15.7); Lymphocytes % 46.1 %; MCH 30.6 pg (27.0-33.0); MCHC 32.1 % (32.0-36.0); MCV 96 fL (80-95); MPV 10.4 fL (8.0-11.0); Monocytes % 10.5 %; Neutrophils % 40.3 %; Platelet Count 216 10^3/uL (130-400); RBC 4.18 10^6/uL (3.93-5.22); RDW 12.1 % (11.7-14.6); RDW-SD 42.6 fL; WBC 6.47 10^3/uL (4.4-10.8)
[2024-01-29 19:51] LABS: ALT 28 U/L (14-59); AST 20 U/L (15-37); Albumin 3.9 g/dL (3.4-5.0); Alkaline Phosphatase 52 U/L (46-116); Anion Gap 8.8 mmol/L (3-11); BUN 16 mg/dL (7-18); Bilirubin, Total 0.34 mg/dL (0.2-1.0); C-Reactive Protein < 0.50 mg/dL (<or=0.5); CO2 28.2 mmol/L (21.0-32.0); CREATININE 0.8 mg/dL (0.55-1.02); Calcium 8.9 mg/dL (8.5-10.1); Chloride 104 mmol/L (98-107); Estimated GFR 81.21 (mL/min/1.73m2); Glucose 99 mg/dL (74-106); Potassium 4.4 mmol/L (3.5-5.1); Sodium 141 mmol/L (136-145)
== END 2024-01-29 19:47 | disposition home or self-care (01) ==
LOC: LBN 19:46
PROVIDERS: PCP Nurse Practitioner; Visit Provider Internal Medicine Rheumatology
DX: M05.89 Other rheumatoid arthritis with rheumatoid factor of multiple sites (principal); Z79.899 Other long term (current) drug therapy
CPT/HCPCS: 80053; 85025; 86140

== ENCOUNTER 2024-06-24 20:16 | Outpatient (REF) | payer OTHER, SELFPAY ==
[2024-06-24 21:52] LABS: Abs Immature Grans 0.01 10^3/uL (0.0-0.06); Absolute Basophil Count 0.04 10^3/uL (0.0-0.2); Absolute Eosinophil Count 0.11 10^3/uL (0.0-0.7); Absolute Lymphocyte Count 3.09 10^3/uL (1.2-3.4); Absolute Monocyte Count 0.74 10^3/uL (0.1-0.8); Absolute Neutrophil Count 2.93 10^3/uL (1.2-6.7); Basophils % 0.6 %; Eosinophils % 1.6 %; HCT 40.1 % (36.0-46.0); HGB 12.8 g/dL (11.2-15.7); Immature Grans % 0.1 %; Lymphocytes % 44.7 %; MCH 30.9 pg (27.0-33.0); MCHC 31.9 % (32.0-36.0); MCV 97 fL (80-95); MPV 10.1 fL (8.0-11.0); Monocytes % 10.7 %; Neutrophils % 42.3 %; Platelet Count 265 10^3/uL (130-400); RBC 4.14 10^6/uL (3.93-5.22); RDW 11.9 % (11.7-14.6); RDW-SD 42.3 fL; WBC 6.92 10^3/uL (4.4-10.8)
[2024-06-24 22:05] LABS: ALT 24 U/L (14-59); AST 18 U/L (15-37); Albumin 3.8 g/dL (3.4-5.0); Alkaline Phosphatase 50 U/L (46-116); Anion Gap 4.7 mmol/L (3-11); BUN 22 mg/dL (7-18); Bilirubin, Total 0.23 mg/dL (0.2-1.0); CO2 29.3 mmol/L (21.0-32.0); Calcium 9.3 mg/dL (8.5-10.1); Chloride 106 mmol/L (98-107); Estimated GFR 62.13 (mL/min/1.73m2); Glucose 98 mg/dL (74-106); Potassium 4.7 mmol/L (3.5-5.1); Sodium 140 mmol/L (136-145); Total Protein 6.9 g/dL (6.4-8.2)
[2024-06-24 22:12] LABS: C-Reactive Protein < 0.50 mg/dL (<or=0.5)
== END 2024-06-24 20:17 | disposition home or self-care (01) ==
LOC: LBN 20:16
PROVIDERS: PCP Nurse Practitioner; Visit Provider Internal Medicine Rheumatology
DX: Z79.899 Other long term (current) drug therapy (principal); M05.89 Other rheumatoid arthritis with rheumatoid factor of multiple sites
CPT/HCPCS: 80053; 85025; 86140

== ENCOUNTER 2024-10-02 15:39 | Outpatient (REF) | payer OTHER, SELFPAY ==
[2024-10-02 16:25] LABS: Calculated LDL 159 mg/dL (<100); Cholesterol 252 mg/dL (<200); HDL Cholesterol 83 mg/dL (>or=50); Triglyceride 54 mg/dL (<150)
== END 2024-10-02 15:40 | disposition home or self-care (01) ==
LOC: LBN 15:39
PROVIDERS: PCP Nurse Practitioner; Visit Provider Nurse Practitioner
DX: Z13.220 Encounter for screening for lipoid disorders (principal)
CPT/HCPCS: 80061

== ENCOUNTER 2024-10-31 00:49 | Outpatient (CLI) | payer OTHER, SELFPAY ==
--- NOTE | 2024-10-31 08:32 | DI.MAMMO_ITS ---
Exam(s) MAMMO SCREENING EXAM: MAMMO SCREENING CLINICAL HISTORY: screening,z12.39. TECHNIQUE: Bilateral full field digital CC and MLO mammographic images were obtained with 3D tomosyn thesis and utilizing computer aided detection (CAD). COMPARISON: Prior mammograms were reviewed. FINDINGS: There has been no significant change in the appearance and distribution of the fibroglandular tissue which is again noted be moderately dense. There are no obvious new spiculated masses nor new malignant appearing microcalcification groups. There is no significant architectural distortion nor skin thickening-retraction. IMPRESSION: No radiographic evidence of malignancy. BI-RADS Category 1 - Negative Breast Density - Category C - Heterogeneously dense Breast density Category C or D implies that the patient has dense breast tissue. Dense breast tissue can make it harder to find cancer on a mammogram. Dense breast tissue is also associated with an incr eased risk of breast cancer. This information about the result of the mammogram report was provided to the patient to raise their awareness. Use this report when you speak with the patient about their risks for breast cancer, which includes their family history. At that time, you may recommend additional screening tests (Ultrasoun d or MRI) as these tests may add significant information. A negative radiographic report should not delay biopsy if a dominant or clinically suspicious mass is present. Up to ten percent of cancers are not identified on mammography. A negative report may reinforce clinical impression. Adenosis and dense breasts may obscure an underlying neoplasm. False positive reports average 6 to 10%. Patient will receive a letter notifying them of these results.
== END 2024-10-31 01:09 ==
LOC: DI 00:49
PROVIDERS: Visit Provider Nurse Practitioner
DX: Z12.31 Encounter for screening mammogram for malignant neoplasm of breast (principal); R92.333 Mammographic heterogeneous density, bilateral breasts
CPT/HCPCS: 77063; 77067

== ENCOUNTER 2024-12-23 16:22 | Outpatient (REF) | payer OTHER, SELFPAY ==
[2024-12-23 16:50] LABS: Absolute Basophil Count 0.05 10^3/uL (0.0-0.2); Absolute Eosinophil Count 0.12 10^3/uL (0.0-0.7); Absolute Lymphocyte Count 2.32 10^3/uL (1.2-3.4); Absolute Monocyte Count 0.79 10^3/uL (0.1-0.8); Basophils % 0.9 %; Eosinophils % 2.2 %; HCT 40.8 % (36.0-46.0); HGB 13.5 g/dL (11.2-15.7); Lymphocytes % 41.6 %; MCH 30.6 pg (27.0-33.0); MCHC 33.1 % (32.0-36.0); MCV 93 fL (80-95); MPV 9.7 fL (8.0-11.0); Monocytes % 14.2 %; Neutrophils % 41.1 %; Platelet Count 285 10^3/uL (130-400); RBC 4.41 10^6/uL (3.93-5.22); RDW-SD 41.2 fL; WBC 5.58 10^3/uL (4.4-10.8)
[2024-12-23 17:15] LABS: ALT 32 U/L (14-59); AST 29 U/L (15-37); Albumin 3.8 g/dL (3.4-5.0); Alkaline Phosphatase 55 U/L (46-116); Anion Gap 9.9 mmol/L (3-11); BUN 14 mg/dL (7-18); Bilirubin, Total 0.4 mg/dL (0.2-1.0); CO2 30.1 mmol/L (21.0-32.0); Calcium 9.4 mg/dL (8.5-10.1); Chloride 101 mmol/L (98-107); Estimated GFR 61.75 (mL/min/1.73m2); Glucose 103 mg/dL (74-106); Sodium 141 mmol/L (136-145)
[2024-12-23 17:18] LABS: C-Reactive Protein < 0.50 mg/dL (<or=0.5)
== END 2024-12-23 16:23 | disposition home or self-care (01) ==
LOC: LBN 16:22
PROVIDERS: Visit Provider Internal Medicine Rheumatology
DX: Z79.899 Other long term (current) drug therapy (principal); M05.89 Other rheumatoid arthritis with rheumatoid factor of multiple sites
CPT/HCPCS: 80053; 85025; 86140

== ENCOUNTER 2025-02-19 13:11 | Outpatient (CLI) | payer OTHER, SELFPAY ==
--- NOTE | 2025-02-19 13:00 | DI.RAD_ITS ---
Exam(s) XR KNEE RT 1V EXAM: XR KNEE RT 1V CLINICAL HISTORY: OA RIGHT KNEE. TECHNIQUE: 2D digital imaging was performed. COMPARISON: CR XR KNEE RT 3V AP,LAT,JOSE from 01/30/2022 CR XR KNEE LT 3V AP,LAT,JOSE from 01/30/2022 FINDINGS: Single lateral view of the right knee: No evidence of fracture nor prominent joint effusion. There are degenerative changes in the medial patellofemoral compartments. The osteochondral defect in the medial femoral condyle described on the frontal view is somewhat more difficult to delineate of the present lateral view. No osseous lesions. Bone density normal. IMPRESSION: As above. DATA REPOSITORY: RADIATION DOSE DELIVERED:
--- NOTE | 2025-02-19 13:00 | DI.RAD_ITS ---
Exam(s) XR KNEE LT 1V EXAM: XR KNEE LT 1V CLINICAL HISTORY: OA L KNEE. TECHNIQUE: 2D digital imaging was performed. COMPARISON: CR XR KNEE RT 1V from 02/19/2025 FINDINGS: Single lateral view of left knee No evidence of fracture nor prominent joint effusion. Some narrowing of the medial compartment is noted. No osseous lesions. Bone density normal. IMPRESSION: As above DATA REPOSITORY: RADIATION DOSE DELIVERED:
--- NOTE | 2025-02-19 13:00 | DI.RAD_ITS ---
Exam(s) XR STANDING ALIGNMENT EXAM: XR STANDING ALIGNMENT CLINICAL HISTORY: BILAT KNEE OA. TECHNIQUE: 2D digital imaging was performed. COMPARISON: CR XR KNEE RT 3V AP,LAT,JOSE from 01/30/2022 CR XR KNEE LT 3V AP,LAT,JOSE from 01/30/2022 FINDINGS: 3 views There are no fractures. There are degenerative changes in both knees which are again noted to be most prominent in the medial compartments. In addition in the medial compartment of the right knee there appears to be a probable osteochondral defect again noted at the articular surface of the medial femoral condyle. Also marginal osteophytes off the medial compartment. The lateral compartment into in used to the but normal height. In the opposite-left knee there are moderate degenerative changes also noted in the medial compartment but no osteochondral defects evident. Lateral compartment exhibits normal height. There may be a small intra-articular loose body in the intercondylar region of the left knee. Lateral compartment exhibits preserved height. Both hips appear unremarkable. Ankles also unremarkable. No significant osseous lesions. IMPRESSION: Degenerative changes in the knees most prominent in the medial compartment. There also appears to be a significant osteochondral defect in the medial compartment of the right knee, as was also evident on images of 01/30/2022. DATA REPOSITORY: RADIATION DOSE DELIVERED:
== END 2025-02-19 13:12 | disposition home or self-care (01) ==
LOC: DIORS 13:11
PROVIDERS: Visit Provider Student in an Organized Health Care Education/Training Program
DX: M17.12 Unilateral primary osteoarthritis, left knee (principal); M17.11 Unilateral primary osteoarthritis, right knee
CPT/HCPCS: 73560; 77073

== ENCOUNTER 2025-06-15 15:36 | Outpatient (REF) | payer OTHER, SELFPAY ==
[2025-06-15 17:38] LABS: Abs Immature Grans 0.01 10^3/uL (0.0-0.06); HCT 36.9 % (36.0-46.0); HGB 12.1 g/dL (11.2-15.7); Immature Grans % 0.2 %; MCH 30.4 pg (27.0-33.0); MCHC 32.8 % (32.0-36.0); MCV 93 fL (80-95); MPV 9.8 fL (8.0-11.0); Platelet Count 270 10^3/uL (130-400); RBC 3.98 10^6/uL (3.93-5.22); RDW 12.0 % (11.7-14.6); RDW-SD 40.9 fL; WBC 5.10 10^3/uL (4.4-10.8)
[2025-06-15 17:46] LABS: ALT 24 U/L (14-59); AST 24 U/L (15-37); Albumin 3.8 g/dL (3.4-5.0); Alkaline Phosphatase 48 U/L (46-116); Anion Gap 7.5 mmol/L (3-11); BUN 15 mg/dL (7-18); Bilirubin, Total 0.4 mg/dL (0.2-1.0); CO2 30.5 mmol/L (21.0-32.0); Calcium 8.9 mg/dL (8.5-10.1); Chloride 100 mmol/L (98-107); Glucose 99 mg/dL (74-106); Potassium 4.1 mmol/L (3.5-5.1); Sodium 138 mmol/L (136-145); Total Protein 7.4 g/dL (6.4-8.2)
[2025-06-15 17:47] LABS: C-Reactive Protein < 0.50 mg/dL (<or=0.5)
[2025-06-17 10:49] LABS: Vitamin D 25 Total 32 ng/mL (30-100)
== END 2025-06-15 15:37 | disposition home or self-care (01) ==
LOC: LBN 15:36
PROVIDERS: PCP Nurse Practitioner Family; Visit Provider Internal Medicine Rheumatology
DX: M05.89 Other rheumatoid arthritis with rheumatoid factor of multiple sites (principal); Z79.899 Other long term (current) drug therapy
CPT/HCPCS: 80053; 82306; 85025; 86140

== ENCOUNTER → 2025-06-19 03:03 | Outpatient (CLI) | payer OTHER, SELFPAY ==
--- NOTE | 2025-06-19 13:52 | DI.DEXA_ITS ---
Exam(s) XR DEXA BONE DENSITY W/WO DAVIN EXAM: XR DEXA BONE DENSITY W/WO DAVIN CLINICAL HISTORY: OSTEOPOROSIS M81.0 TECHNIQUE: Routine DEXA evaluation of the lumbar spine, hip, or forearm. COMPARISON: CR XR DEXA BONE DENSITY W/WO DAVIN from 05/14/2023 FINDINGS: Performed on a Holo[employer] unit. Lateral image: No compression fracture evident. Lumbar Spine total T-score: -1.2 which is osteopenia range. The prior reading in May 2023 was -2.0 Hip total T-score:-2.1 which is osteopenia range. Prior reading in May 2023 was -2.3. Independent reading at the level of the femoral neck yields T-score of -3.0 which is osteoporosis range. Prior reading in May 2023 was also -3.0 at that time Forearm total T-score: -1.9 which is osteopenia range. Prior reading in May 2023 was -2.0 IMPRESSION: Bone mineral density measures in the osteopenia range for the lumbar spine and forearm. Fracture risk at these levels is moderate. Bone mineral density again measures in the osteoporosis range at the level the hip-femoral neck with identical reading to May 2023 at this level, indicating that fracture risk at this level is again high. Note: Any spine fracture indicates 5x risk for subsequent spine fracture and 2x risk for subsequent hip fracture. World Health Organization criteria for BMD interpretation classify patients: Normal...... T- Score at or above -1.0 Osteopenic... T- Score between -1.0 and -2.5 Osteoporosis... T-Score at or below -2.5
== END ==
LOC: DI 03:03
PROVIDERS: PCP Nurse Practitioner Family; Visit Provider Nurse Practitioner Family
DX: M81.0 Age-related osteoporosis without current pathological fracture (principal)
CPT/HCPCS: 77080